=== PATIENT | female | born 1975 | race Caucasian/White ===

== ENCOUNTER 2017-12-12 10:20 | Emergency (ER) | payer BC ==
[2017-12-12] MEDS ORDERED: Ibuprofen TAB* 600 MG PO ONE (10:58)
[2017-12-12] MEDS ORDERED: Acetaminophen TAB* 325 MG PO ONE (11:00)
--- NOTE | 2017-12-12 11:55 | RAD ---
INDICATION: Fourth toe injury COMPARISON: None TECHNIQUE: AP, lateral, and oblique views were obtained. FINDINGS: The bony structures, joint spaces, and soft tissues are normal for age. IMPRESSION: NEGATIVE EXAMINATION.
--- NOTE | 2017-12-12 12:27 | ED ---
Miguel Miranda Stephanie, scribed for Lasha Martinez MD on 12/12/17 at 1120 . Lower Extremity - HPI Summary HPI Summary: The pt is a 42 y/o F presenting to the ED with c/o pain on her 4th toe on her L foot that began yesterday s/p banging toe on concrete. Symptoms include discoloration and swelling of the affected toe and shooting pain up the hanley through to the L knee. The pt denies ankle pain. - History of Current Complaint Chief Complaint: EDExtremityLower Stated Complaint: LT FOOT INJURY Time Seen by Provider: 12/12/17 10:56 Hx Obtained From: Patient Hx Last Menstrual Period: 08/10/12 Mechanism Of Injury: Other - hit toe on concrete yesterday Onset of Pain: Immediate Onset/Duration: Still Present Severity Currently: Moderate Pain Intensity: 5 Pain Scale Used: 0-10 Numeric Timing: Constant Location: Is Discrete @ - 4th toe on L foot Associated Signs And Symptoms: Positive: Swelling, Redness Aggravating Factor(s): Other - contact Alleviating Factor(s): Rest Able to Bear Weight: Yes - Allergies/Home Medications Allergies/Adverse Reactions: Allergies Allergy/AdvReac Type Severity Reaction Status Date / Time amoxicillin Allergy Nausea And Verified 12/12/17 11:02 Vomiting butalbital [From Fioricet] Allergy Hives Verified 12/12/17 10:36 caffeine [From Fioricet] Allergy Hives Verified 12/12/17 10:36 ketorolac Allergy Hives Verified 12/12/17 10:36 Penicillins Allergy Hives Verified 12/12/17 10:36 Tetracyclines Allergy Hives Verified 12/12/17 10:36 PMH/Surg Hx/FS Hx/Imm Hx Endocrine/Hematology History: Reports: Hx Blood Disorders - abnormal bleeding onset of 08/10/12 Denies: Hx Diabetes, Hx Systemic Lupus Erythematosus, Hx Thyroid Disease Cardiovascular History: Denies: Hx Congestive Heart Failure, Hx Hypertension Respiratory History: Denies: Hx Asthma, Hx Chronic Obstructive Pulmonary Disease (COPD) GI History: Denies: Hx Ulcer History: Reports: Hx Kidney Stones Denies: Hx Dialysis, Hx Renal Disease Musculoskeletal History: Denies: Hx Rheumatoid Arthritis Sensory History: Reports: Hx Contacts or Glasses - contacts Opthamlomology History: Reports: Hx Contacts or Glasses - contacts Neurological History: Reports: Hx Headaches - Cancer History Hx Chemotherapy: No - Surgical History Surgery Procedure, Year, and Place: keloid cysts. fat tumor removed from arm Hx Anesthesia Reactions: No Infectious Disease History: No Infectious Disease History: Denies: Hx Hepatitis, Hx Human Immunodeficiency Virus (HIV), Traveled Outside the [place] in Last 30 Days - Family History Known Family History: Negative: Renal Disease - Social History Occupation: Unemployed Lives: With Family Alcohol Use: Weekly Hx Substance Use: No Substance Use Type: Reports: None Hx Tobacco Use: No Smoking Status (MU): Never Smoked Tobacco Have You Smoked in the Last Year: No Review of Systems Negative: Fever Positive: Edema - 4th toe on L foot, Other - pain and redness on 4th toe of L foot, shooting pain up the hanley through to the L knee All Other Systems Reviewed And Are Negative: Yes Physical Exam - Summary Physical Exam Summary: General: well-appearing, no pain distress Skin: warm, color reflects adequate perfusion, dry Head: normal Eyes: EOMI, JEN ENT: normal Neck: supple, nontender Respiratory: CTA, breath sounds present Cardiovascular: RRR Abdomen: soft, nontender Bowel: present Musculoskeletal: strength/ROM intact, ecchymosis over 4th toe on the L foot. tender to palpation to 4th toe on L foot. Good capillary refill, no sensational deficit. Neurological: normal, sensory/motor intact, A&O x3 Psychological: affect/mood appropriate Triage Information Reviewed: Yes Vital Signs On Initial Exam: Initial Vitals Temp Pulse Resp BP Pulse Ox 98 F 95 14 146/80 99 12/12/17 10:36 12/12/17 10:36 12/12/17 10:36 12/12/17 10:36 12/12/17 10:36 Vital Signs Reviewed: Yes Diagnostics - Vital Signs Vital Signs Temp Pulse Resp BP Pulse Ox 12/12/17 10:36 98 F 95 14 146/80 99 - Laboratory Lab Statement: Any lab studies that have been ordered have been reviewed, and results considered in the medical decision making process. - Radiology Foot XRay Xray Interpretation: No Acute Changes Radiology Interpretation Completed By: Radiologist - Negative examination. ED physician has reviewed this report. Re-Evaluation - Re-Evaluation First Eval Re-Evaluation Time: 12:17 Change: Unchanged - ED physician discussed XRay results and plan of discharge with the pt. The pt agrees with the plan of discharge. Lower Extremity Course/Dx - Course Course Of Treatment: DISCUSSED X-RAY RESULTS WITH THE PATIENT. F/U PMD; RETURN IF WORSE. - Diagnoses Provider Diagnoses: Sprain of toe, fourth, left Discharge - Sign-Out/Discharge Documenting (check all that apply): Discharge/Admit/Transfer - Discharge Plan Condition: Stable Disposition: HOME Prescriptions: oxyCODONE/Acetamin 5/325 MG* [Percocet 5/325 TAB*] 1 tab PO Q4H PRN #20 tab MDD 6 PRN Reason: Pain Referrals: Malathi Nieto DO [Primary Care Provider] - Additional Instructions: FOLLOW UP WITH YOUR DOCTOR FOR YOUR LEFT 4TH TOE INJURY. REST, ICE, PROTECT AND ELEVATE YOUR INJURED TOE. RETURN TO THE EMERGENCY DEPARTMENT FOR ANY WORSENING OF YOUR CONDITION OR QUESTIONS OR CONCERNS. - Billing Disposition and Condition Condition: STABLE Disposition: HOME The documentation as recorded by the Miguel perez Stephanie accurately reflects the service I personally performed and the decisions made by me, Lasha Martinez MD.
[2017-12-12 12:40] VITALS: BP 158/99
== END 2017-12-12 12:38 | disposition home or self-care (01) ==
LOC: ED 10:20
DX: S93.505A Unspecified sprain of left lesser toe(s), initial encounter (principal); W22.8XXA Striking against or struck by other objects, initial encounter; Y92.9 Unspecified place or not applicable; R60.9 Edema, unspecified
CPT/HCPCS: 99282; A9270-GY